=== PATIENT | male | born 1950 | race Caucasian/White ===

== ENCOUNTER 2018-03-05 15:26 | Observation (INO) | payer MEDICARE, OTHER ==
[2018-03-05] MEDS ORDERED: ASPIRIN 81 MG TAB.CHEW PO ONE (15:40)
[2018-03-05] MEDS ORDERED: ASPIRIN 81 MG TAB.CHEW ONE (15:44)
[2018-03-05] MEDS ORDERED: NITROGLYCERIN 0.4 MG/TAB BTL SL ONE ×3 (15:47→15:59)
--- NOTE | 2018-03-05 15:52 | ERNOTE ---
Chest Pain/Cardiac HPI Date of Service: 03/05/18 Chief Complaint: Chest Pain Time Seen by Provider: 03/05/18 15:40 Source: patient Exam Limitations: no limitations Immunizations: IMMUNIZATION HX Immunizations Up to Date Yes History of Influenza Vaccine No Hx Pneumococcal Vaccination No Allergies/Adverse Reactions: Allergies No Known Allergies Allergy (Verified 11/28/15 07:58) Home Medications: HOME MEDICATIONS Aspirin [Aspirin EC] 325 mg PO DAILY 09/29/16 [Last Taken Unknown] Atorvastatin Calcium [Lipitor] 10 mg PO DAILY 09/29/16 [Last Taken Unknown] Metoprolol Tartrate [Lopressor] 50 mg PO BID 09/29/16 [Last Taken Unknown] Omeprazole 10 mg PO DAILY 09/29/16 [Last Taken Unknown] Pain Score #1 Pain Score: 7 Narrative: The patient is a 67 year old male who presents for sternal chest pain which has been present for 1 hour. There are associated symptoms of nausea. The patient reports sternal chest pain, 7/10. There are no alleviating factors. There are no aggravating factors. Previous treatments have included: none. The past medical history includes: bypass, HTN, HLD. The social history is negative. The patient has had no ill contacts. Patient states he was resting when pain began. Patient had similar symptoms on Tuesday but attributed them to food after eating fried fish. Timing: constant Severity/Quality: sharp Location: substernal Chest Pain Radiation: no radiation Activities at Onset: rest Modifying Factors - Improves: Present: nothing Modifying Factors - Worsens: Present: nothing Nitro Today/Relief: no nitro taken today Aspirin Treatment Today: 81 mg x 1 Associated Symptoms: Present: nausea. Absent: dizziness, cough, shortness of breath, diaphoresis, palpitations, vomiting, abdominal pain, back pain Prior Chest Pain/Cardiac Workup: Reports: heart attack, cardiac cath Review of Systems - Review of Systems Constitutional: Present: no symptoms reported. Absent: fever, fatigue EYE: Present: no symptoms reported ENT: Present: no symptoms reported. Absent: ear pain, nasal drainage, sore throat Respiratory: Present: no symptoms reported. Absent: shortness of breath, cough Cardiology: Present: chest pain Gastrointestinal/Abdominal: Present: nausea. Absent: vomiting, diarrhea, abdominal pain Genitourinary: Present: no symptoms reported Musculoskeletal: Present: no symptoms reported Skin: Present: no symptoms reported Neurological: Present: no symptoms reported Endocrine: Present: no symptoms reported Hematologic/Lymphatic: Present: no symptoms reported Psych: Present: no symptoms reported All Other Systems: All systems neg except as marked Medical History (Last Reviewed 03/05/18 @ 17:32 by LENNOX Arrington) coronary bypass HTN (hypertension) Social History: Preferred Language Slovak Do you have any worship or No cultural preference? Smoking Status Never smoker Abuse History No History of abuse Psych History No pertinent hx Alcohol Use occasionally Drug Use none No Social History Section defined Physical Exam - Physical Exam General Appearance: Present: wd/wn, alert, mild distress Head Exam: Present: normal inspection Respiratory: Present: no respiratory distress, normal breath sounds, no accessory muscle use, chest nontender, lungs clear Cardiovascular/Chest: Present: regular rate, rhythm, no murmur Peripheral Pulses: N=norm/S=strong/W=weak/B=bound/A=absent: Radial (L): Normal Gastrointestinal/Abdominal: Present: normal bowel sounds, nontender, nondistended, soft, no organomegaly Neurological Exam: Present: alert, oriented, normal mood/affect Skin Exam: Present: normal color, warm/dry ED Progress - Date and Time Seen: Date and Time: 03/05/18 16:06 Pain following Nitro x3, 4/10. 03/05/18 17:03 Discussed care with and will admit for observation chest pain. - Results and Orders Patient's Lab Results:: I have reviewed the patient's lab results. - Vital Signs Patient's Vital Signs:: I have reviewed the patient's vital signs. Vital Signs: Vital Signs 03/05/18 15:38 Temperature 36.4 C Pulse Rate 64 Respiratory Rate 16 Blood Pressure 150/98 H O2 Sat by Pulse Oximetry 98 - EKG EKG: NSR EKG read: Reviewed by me EKG Comments: Reviewed with . - X-Ray X-Ray #1 X-Ray: chest Interpretation: Reviewed by me X-ray Comments: No acute cardiopulmonary abnormalities. - Progress/Reassessment Chief Complaint: Chest Pain Departure Clinical Impression: Chest pain Qualifiers: Chest pain type: unspecified Qualified Code(s): R07.9 - Chest pain, unspecified - Departure Disposition: Still a patient Condition: Good
[2018-03-05 15:53] LABS: Hematocrit 45.3 % (42.0-52.0); Hemoglobin 15.2 gm/dL (13.5-18.0); Mean Corpuscular Hemoglobin 31.2 pg (27-31); Mean Corpuscular Hgb Conc 33.6 g/dl (32-36); Mean Platelet Volume 11.2 fl (8-11.3); Neutrophil # 3.5 K/mm3 (1.3-6.0); Neutrophil % 55.7 % (42-75.0); Platelet Count 151 K/mm3 (150-450); Red Blood Count 4.87 M/mm3 (4.7-6.0); Red Cell Distribution Width 12.6 % (11.5-14.0); White Blood Count 6.3 K/mm3 (4.0-10.5)
[2018-03-05 16:01] LABS: Prothrombin Time (Patient) 10.4 Seconds (9.0-11.0)
[2018-03-05 16:03] LABS: INR 1.04 INR (0.90-1.10); Partial Thrombolplastin Time 23.3 Seconds (24-32)
[2018-03-05 16:07] LABS: ALT 37 U/L (19-67); AST 38 U/L (0-48); Alkaline Phosphatase * 58 U/L (50-170); Anion Gap 12.4 mmol/L (6.8-13.8); BUN/Creatinine Ratio 17.2 (9.0-21.6); Bilirubin, Total 0.6 mg/dL (0.0-1.1); Blood Urea Nitrogen 22 mg/dL (6-23); Ca. Corrected For Albumin 8.2 mg/dL (8.4-10.2); Calcium * 8.5 mg/dL (7.9-10.9); Carbon Dioxide 28.7 mmol/L (24-32.6); Chloride 104 mmol/L (97-106); Glucose * 95 mg/dL (70-110); Potassium 4.1 mmol/L (3.4-4.6); Sodium 141 mmol/L (132-142); Total Protein 7.1 gm/dL (6.2-8.2); Troponin I Less than 0.017 ng/mL (0.00-0.10)
[2018-03-05] MEDS ORDERED: ROSUVASTATIN CALCIUM 20 MG TABLET PO STA (17:02)
[2018-03-05] MEDS ORDERED: ROSUVASTATIN CALCIUM 10 MG TABLET ONE (17:30)
--- NOTE | 2018-03-05 18:51 | HP ---
Chief Complaint - Chief Complaint Date of Service: 03/05/18 Time of Service: 18:37 Chief Complaint: chest pain History of Present Illness: Patient with PMHx of previous cardiac bypass X 2 (most recently 1 1/2 years ago), HTN, HLD presents with chest pain for approximately 3 hours. He was watching football when it started, and he got a little nauseated. He did not get short of breath or lightheaded. The pain was sharp, and improved with nitro X 3 in the ED. Even though he has had cardiac bypass surgeries, he has not had chest pain in the past. He has had heartburn, and this feels different. He does not smoke, and has about 2 12 ounce drinks a day. The pain is no longer present at the time of my exam. Initial troponin negative, and no signs of ischemia or developing infarct on EKG. 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 Has not had a recent stress test. Medical History (Last Updated 03/05/18 @ 17:43 by Vanda Givens RN) Hernia HTN (hypertension) Surgical History: Surgical History (Last Updated 03/05/18 @ 17:43 by Vanda Givens RN) History of appendectomy coronary bypass Family History: Family History (Last Updated 03/05/18 @ 17:44 by Vanda Givens RN) Mother Father Hypertension Social History: Patient Lives/Resources Home Utilized Preferred Language Haitian Do you have any mormonism or No cultural preference? Smoking Status Never smoker Have you smoked in the past 12 No months Abuse History No History of abuse Psych History No pertinent hx Alcohol Use occasionally Drug Use none No Social History Section defined Review Of Systems (GEN) - Review of Systems Generalized/Overall Review: Absent: Chills, Fever Respiratory: Absent: Cough, Shortness of Breath Cardiac: Present: Chest Pain. Absent: Edema, Syncope Abdominal: Present: Nausea. Absent: Vomiting Genitourinary: Absent: Dysuria Immunizations: IMMUNIZATION HX Immunizations Up to Date Yes History of Influenza Vaccine No Hx Pneumococcal Vaccination No Allergies/Adverse Reactions: Allergies Allergy/AdvReac Type Severity Reaction Status Date / Time No Known Allergies Allergy Verified 03/05/18 17:44 Home Medications: HOME MEDICATIONS Atorvastatin Calcium [Lipitor] 10 mg PO DAILY 09/29/16 [Last Taken Unknown] Metoprolol Tartrate [Lopressor] 50 mg PO BID 09/29/16 [Last Taken Unknown] Omeprazole 10 mg PO DAILY 09/29/16 [Last Taken Unknown] Aspirin 81 mg PO DAILY 03/05/18 [Last Taken Unknown] Exam - Exam Vital Signs: Vital Signs - Last Taken Temp 36.4 C 03/05/18 17:38 Pulse 68 03/05/18 17:50 Resp 16 03/05/18 17:38 BP 144/88 03/05/18 17:38 Pulse Ox 97 03/05/18 17:38 Constitutional: Present: Alert, Oriented x3, Cooperative, Well developed, Well nourished, Looks Younger than stated age Respiratory: Present: lungs clear, normal breath sounds, no respiratory distress Cardiovascular/Chest: Present: regular rate, rhythm Abdomen: Present: soft, nontender Extremity: Absent: lower extremity edema Neurologic: Present: normal mood/affect Appearance: Present: appropriate appearance Eye contact: Present: cooperative, good eye contact Thoughts: Present: normal thought pattern Diagnostic Studies: Abnormal Lab Results 03/05/18 03/05/18 03/05/18 Range/Units 15:45 15:45 15:45 MCH 31.2 H (27-31) pg Immature Gran % (Auto) 0.60 H (0.001-0.429) % Immature Gran # (Auto) 0.04 H (0.000-0.0310) K/mm3 PTT ([place]) 23.3 L (24-32) Seconds Calcium Adj for Albumin 8.2 L (8.4-10.2) mg/dL Laboratory Results WBC 6.3 K/mm3 (4.0-10.5) 03/05/18 15:45 RBC 4.87 M/mm3 (4.7-6.0) 03/05/18 15:45 Hgb 15.2 gm/dL (13.5-18.0) 03/05/18 15:45 Hct 45.3 % (42.0-52.0) 03/05/18 15:45 MCV 93.0 fl (78-100) 03/05/18 15:45 MCH 31.2 pg (27-31) H 03/05/18 15:45 MCHC 33.6 g/dl (32-36) 03/05/18 15:45 RDW 12.6 % (11.5-14.0) 03/05/18 15:45 Plt Count 151 K/mm3 (150-450) 03/05/18 15:45 MPV 11.2 fl (8-11.3) 03/05/18 15:45 Immature Gran % (Auto) 0.60 % (0.001-0.429) H 03/05/18 15:45 Immature Gran # (Auto) 0.04 K/mm3 (0.000-0.0310) H 03/05/18 15:45 Neutrophils % 55.7 % (42-75.0) 03/05/18 15:45 Lymphocytes % 34.2 % (20-51) 03/05/18 15:45 Monocytes % 7.7 % (0.0-9) 03/05/18 15:45 Eosinophils % 1.3 % (0.0-3.0) 03/05/18 15:45 Basophils % 0.5 % (0.0-1.0) 03/05/18 15:45 Nucleated RBC % 0.0 k/mm3 (0-1) 03/05/18 15:45 Neutrophils # 3.5 K/mm3 (1.3-6.0) 03/05/18 15:45 Lymphocytes # 2.14 k/mm3 (1.5-3.5) 03/05/18 15:45 Monocytes # 0.5 k/mm3 (0.0-1.0) 03/05/18 15:45 Eosinophils # 0.1 k/mm3 (0.0-0.7) 03/05/18 15:45 Absolute Basophils 0.0 k/mm3 (0.0-0.1) 03/05/18 15:45 PT 10.4 Seconds (9.0-11.0) 03/05/18 15:45 INR (Anticoag Therapy) 1.04 INR (0.90-1.10) 03/05/18 15:45 PTT ([place]) 23.3 Seconds (24-32) L 03/05/18 15:45 Sodium 141 mmol/L (132-142) 03/05/18 15:45 Plasma Sodium 141 mmol/L (130-142) 03/05/18 15:45 Potassium 4.1 mmol/L (3.4-4.6) 03/05/18 15:45 Chloride 104 mmol/L (97-106) 03/05/18 15:45 Carbon Dioxide 28.7 mmol/L (24-32.6) 03/05/18 15:45 Anion Gap 12.4 mmol/L (6.8-13.8) 03/05/18 15:45 BUN 22 mg/dL (6-23) 03/05/18 15:45 Creatinine 1.28 mg/dL (0.4-1.4) 03/05/18 15:45 Est GFR (Non-Af Amer) 60 mL/min (60-130) D 03/05/18 15:45 BUN/Creatinine Ratio 17.2 (9.0-21.6) 03/05/18 15:45 Random Glucose 95 mg/dL (70-110) 03/05/18 15:45 Calcium 8.5 mg/dL (7.9-10.9) 03/05/18 15:45 Calcium Adj for Albumin 8.2 mg/dL (8.4-10.2) L 03/05/18 15:45 Total Bilirubin 0.6 mg/dL (0.0-1.1) 03/05/18 15:45 AST 38 U/L (0-48) 03/05/18 15:45 ALT 37 U/L (19-67) 03/05/18 15:45 Alkaline Phosphatase 58 U/L (50-170) 03/05/18 15:45 Troponin I Less than 0.017 ng/mL (0.00-0.10) 03/05/18 15:45 Total Protein 7.1 gm/dL (6.2-8.2) 03/05/18 15:45 Albumin 4.0 gm/dl (3.4-5.0) 03/05/18 15:45 Assessment/Plan - Assessment/Plan (1) Chest pain Assessment: Ddx includes cardiac source, MSK, GERD, pulmonary source, anxiety. With his HTN, HLD, male sex, and previous bypass, he does have risk factors for ACS. The sharp nature of his pain is reassuring for a noncardiac source. No infectious symptoms make pulmonary source less likely. Will trend troponins, and repeat EKG in the morning. If it recurs, can administer GI cocktail. 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 Will increase atorvastatin dose on discharge for optimal CV risk reduction. Problem: Acute Qualifiers: Chest pain type: unspecified Qualified Code(s): R07.9 - Chest pain, unspecified (2) HTN (hypertension) Problem: Acute (3) HLD (hyperlipidemia) Problem: Acute (4) S/P CABG x 2 Problem: Acute (5) CAD (coronary artery disease) Problem: Acute
[2018-03-05] MEDS: METOPROLOL TARTRATE 50 MG TABLET PO SCH (20:09)
[2018-03-05] MEDS ORDERED: SIMVASTATIN 20 MG TABLET PO SCH (21:00)
[2018-03-06] MEDS ORDERED: PANTOPRAZOLE SODIUM 20 MG TABLET.DR PO SCH (07:00)
--- NOTE | 2018-03-06 07:14 | DS ---
(1) Chest pain Problem: Acute Qualifiers: Chest pain type: unspecified Qualified Code(s): R07.9 - Chest pain, unspecified (2) HTN (hypertension) Problem: Acute (3) HLD (hyperlipidemia) Problem: Acute (4) S/P CABG x 2 Problem: Acute (5) CAD (coronary artery disease) Problem: Acute Description of Stay: Patient with PMHx of previous cardiac bypass X 2 (most recently 1 1/2 years ago), HTN, HLD presents with chest pain for approximately 3 hours. He was watching football when it started, and he got a little nauseated. He did not get short of breath or lightheaded. The pain was sharp, and improved with nitro X 3 in the ED. Even though he has had cardiac bypass surgeries, he has not had chest pain in the past. He has had heartburn, and this feels different. He does not smoke, and has about 2 12 ounce drinks a day. The pain is no longer present at the time of his initial exam, and did not recur during his hospital stay. Troponins were negative, and no signs of ischemia or developing infarct on EKGs. 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 Has not had a recent stress test, and will order this outpatient. Procedures Performed: none Results and Findings: Lab Pending Results 03/05/18 15:45: WBC 6.3, RBC 4.87, Hgb 15.2, Hct 45.3, MCV 93.0, MCH 31.2 H, MCHC 33.6, RDW 12.6, Plt Count 151, MPV 11.2, Immature Gran % (Auto) 0.60 H, Immature Gran # (Auto) 0.04 H, Neutrophils % 55.7, Lymphocytes % 34.2, Monocytes % 7.7, Eosinophils % 1.3, Basophils % 0.5, Nucleated RBC % 0.0, Neutrophils # 3.5, Lymphocytes # 2.14, Monocytes # 0.5, Eosinophils # 0.1, Absolute Basophils 0.0 03/05/18 15:45: PT 10.4, INR (Anticoag Therapy) 1.04, PTT ([place]) 23.3 L 03/05/18 15:45: Sodium 141, Plasma Sodium 141, Potassium 4.1, Chloride 104, Carbon Dioxide 28.7, Anion Gap 12.4, BUN 22, Creatinine 1.28, Est GFR (Non-Af Amer) 60 D, BUN/Creatinine Ratio 17.2, Random Glucose 95, Calcium 8.5, Calcium Adj for Albumin 8.2 L, Total Bilirubin 0.6, AST 38, ALT 37, Alkaline Phosphatase 58, Troponin I Less than 0.017, Total Protein 7.1, Albumin 4.0 03/05/18 23:15: Troponin I Less than 0.017 Discharge Location: Home Disposition: Home self-care Condition: Good Discharge Activity: Activity as tolerated Discharge Diet: General/regular food Referrals: Anali Hoover MD [Primary Care Provider] - Complete Home Medications List: Complete Home Medication List: Atorvastatin Calcium [Lipitor] 10 mg PO DAILY 09/29/16 Metoprolol Tartrate [Lopressor] 50 mg PO BID 09/29/16 Omeprazole 10 mg PO DAILY 09/29/16 Aspirin 81 mg PO DAILY 03/05/18
[2018-03-06] MEDS: METOPROLOL TARTRATE 50 MG TABLET PO SCH (08:33)
[2018-03-06 08:46] VITALS: BP 135/76
[2018-03-06] MEDS ORDERED: ASPIRIN 81 MG TAB.CHEW PO SCH (09:00)
== END 2018-03-06 09:00 | disposition home or self-care (01) ==
LOC: ER 15:26 → MS 15:26
PROVIDERS: ADMIT Family Medicine; ATTEND Family Medicine
CPT/HCPCS: 36415; 71020; 71046; 80053; 84484; 85025; 85610; 85730; 90686; 93005; 99284; G0008; G0378